=== PATIENT | female | born 1940 | race Caucasian/White ===

== ENCOUNTER 2019-04-02 10:52 | Outpatient (CLI) | payer MEDICARE, MEDICAID ==
[~2019-04-02 10:52] MED LIST: Acetaminophen 325 MG Tab PO ONE
[2019-04-02] MEDS ORDERED: diphenhydrAMINE 25 MG Tab PO ONE (11:00)
[2019-04-02] MEDS ORDERED: Acetaminophen 325 MG Tab PO ONE (11:00)
[2019-04-02] MEDS ORDERED: Sodium Chloride 0.9% 10 ML Syringe FLUSH PRN (13:04)
== END 2019-04-02 14:40 | disposition home or self-care (01) ==
LOC: DL.BLOODTR 10:52
PROVIDERS: ATTEND Internal Medicine Hematology & Oncology
DX: C7A.1 Malignant poorly differentiated neuroendocrine tumors (principal)
CPT/HCPCS: 36415; 36430; 86850; 86900; 86901; 86920; 86922; A9270; J1642; P9040

== ENCOUNTER 2019-10-06 14:13 | Inpatient (IN) | payer MEDICARE, MEDICAID ==
[2019-10-06] MEDS ORDERED: Acetaminophen 325 MG Tab PO PRN (15:23)
[2019-10-06] MEDS ORDERED: Ondansetron 4 MG/2 ML SDV IVPUSH PRN (15:23)
[2019-10-06] MEDS ORDERED: Potassium Chloride 10 MEQ Tab.ER PO ONE (15:30)
--- NOTE | 2019-10-06 15:44 | PCM.HP ---
H&P History of Present Illness - General Date of Service: 10/06/19 Admit Problem/Dx: Admission Diagnosis/Problem Admission Diagnosis/Problem Dehydration - History of Present Illness Initial Comments - Free Text/Narative: Ms. Casas is a 79 year old female with past medical history significant for relapsed poorly differentiated neuroendocrine tumor currently on FOLFOX therapy , most recent cycle finished on Saturday, history of CVA, hypertension, hypercholesterolemia, tobacco abuse who presented to the hospital as a direct admit from clinic due to progressive weakness, and adult failure to thrive. Patient said that she is on her third week of FOLFOX, and she aggressively got worried weaker. Over the past week or so, she developed significant weakness, associated with nausea and vomiting. Patient thinks that she is keeping up with her output, a and she has chronic diarrhea. She did not notice any change in the color or smell of her urine. Her appetite has been poor. She was seen today by Dr. Giraldo, and lab work was remarkable for potassium 2.8, creatinine 1.5, hemoglobin 9.7, white blood cell count 2.66, chloride 95, calcium 6.9, albumin 2.2. Upon evaluation, patient said that she has no energy. She denied any recent illness. She has no sick contacts. - Related Data Allergies/Adverse Reactions: Allergies Allergy/AdvReac Type Severity Reaction Status Date / Time Penicillins Allergy Cannot Verified 10/06/19 14:40 Remember Home Medications: Home Meds Labetalol [Normodyne] 100 mg PO BIDMEALS 01/21/18 [History] Rosuvastatin [Crestor] 10 mg PO BEDTIME 01/21/18 [History] Ondansetron [Zofran] 8 mg PO Q8H PRN 05/30/18 [History] Prochlorperazine [Compazine] 10 mg PO Q6H PRN 05/30/18 [History] Furosemide [Lasix] 20 mg PO DAILY 02/10/19 [History] Aspirin [Ecotrin EC] 81 mg PO BEDTIME 10/06/19 [History] Sodium Chloride 1 gm PO BID 10/06/19 [History] Zolpidem Tartrate 10 mg PO BEDTIME 10/06/19 [History] amLODIPine Besylate [Amlodipine Besylate] 5 mg PO WITHDINNER 10/06/19 [History] Past Medical History HEENT History: Reports: Cataract Cardiovascular History: Reports: High Cholesterol, Hypertension Respiratory History: Reports: Other (See Below) Other Respiratory History: Lung Cancer Gastrointestinal History: Reports: None Genitourinary History: Reports: None RN HEMATOLOGY History: Reports: Musculoskeletal History: Reports: None Neurological History: Reports: CVA Psychiatric History: Reports: None Endocrine/Metabolic History: Reports: None Hematologic History: Reports: Anemia, Blood Transfusion(s), Iron Deficiency Immunologic History: Reports: Immunosuppression Oncologic (Cancer) 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 - Infectious Disease History Infectious Disease History: Reports: Influenza, Shingles - Past Surgical History Head Surgeries/Procedures: Reports: None HEENT Surgical History: Reports: Cataract Surgery Cardiovascular Surgical History: Reports: Carotid Stents Respiratory Surgical History: Reports: Lung Biopsies GI Surgical History: Reports: Appendectomy Female Surgical History: Reports: None Neurological Surgical History: Reports: None Musculoskeletal Surgical History: Reports: None Oncologic Surgical History: Reports: None Dermatological Surgical History: Reports: None Social & Family History - Family History Family Medical History: Noncontributory - Tobacco Use Smoking Status *Q: Current Every Day Smoker Years of Tobacco use: 63 Packs/Tins Daily: 0.7 Used Tobacco, but Quit: No Second Hand Smoke Exposure: No - Caffeine Use Caffeine Use: Reports: Coffee - Recreational Drug Use Recreational Drug Use: No H&P Review of Systems - Review of Systems: Review Of Systems: Comprehensive ROS is negative, except as noted in HPI. Exam - Exam Exam: See Below - Exam General: Alert, Oriented, Other HEENT: Conjunctiva Clear Lungs: Clear to Auscultation, Normal Respiratory Effort Cardiovascular: Regular Rate, Regular Rhythm GI/Abdominal Exam: Normal Bowel Sounds, Soft, Non-Tender Extremities: Normal Inspection, No Pedal Edema Skin: Warm, Dry, Intact Psychiatric: Alert, Normal Affect, Normal Mood Problem List Initiated/Reviewed/Updated: Yes Orders Last 24hrs: Active Orders 24 hr Category Date Time Status Patient Status [ADT] Routine ADT 10/06/19 15:23 Ordered Height and Weight [RC] DAILY Care 10/06/19 15:23 Ordered Intake and Output [RC] QSHIFT Care 10/06/19 15:23 Ordered Oxygen Therapy [RC] PRN Care 10/06/19 15:23 Ordered Up With Assistance [RC] ASDIRECTED Care 10/06/19 15:23 Ordered VTE/DVT Education [RC] PER UNIT ROUTINE Care 10/06/19 15:23 Ordered Vital Signs [RC] Q4H Care 10/06/19 15:23 Ordered PT Evaluation and Treatment [CONS] Routine Cons 10/06/19 15:23 Ordered Regular Diet [DIET] Diet 10/06/19 Dinner Ordered CBC W/O DIFF,HEMOGRAM [HEME] Stat Lab 10/06/19 15:23 Ordered CBC WITH AUTO DIFF [HEME] AM Lab 10/07/19 05:11 Ordered COMPREHENSIVE METABOLIC PN,CMP [CHEM] AM Lab 10/07/19 05:11 Ordered MAGNESIUM [CHEM] AM Lab 10/07/19 05:11 Ordered PHOSPHORUS [CHEM] AM Lab 10/07/19 05:11 Ordered Acetaminophen [Tylenol] Med 10/06/19 15:23 Ordered 650 mg PO Q4H PRN Aspirin [Halfprin] Med 10/06/19 21:00 Ordered 81 mg PO BEDTIME Labetalol [Normodyne] Med 10/06/19 18:00 Ordered 100 mg PO BIDMEALS Ondansetron [Zofran] Med 10/06/19 15:23 Ordered 4 mg IVPUSH Q4H PRN Potassium Chloride [Klor-Con 10] Med 10/06/19 15:30 Once 60 meq PO ONETIME ONE Rosuvastatin [Crestor] Med 10/06/19 21:00 Ordered 10 mg PO BEDTIME Sodium Chloride Med 10/06/19 21:00 Ordered 1 gm PO BID Sodium Chloride 0.9% @ 125 MLS/HR (1000ml) Med 10/06/19 15:30 Ordered Sodium Chloride 0.9% [Normal Saline] 1,000 ml IV ASDIRECTED Zolpidem Tartrate Med 10/06/19 21:00 Ordered 10 mg PO BEDTIME Resuscitation Status Routine Resus Stat 10/06/19 15:23 Ordered Medication Orders Acetaminophen (Tylenol) 650 mg PO Q4H PRN PRN Reason: Pain (Mild 1-3)/fever Aspirin (Halfprin) 81 mg PO BEDTIME [facility] Assessment/Plan Comment:: Dehydration/possible MARCELO Patient had poor oral intake with associated chronic diarrhea Start patient on IV fluids Deconditioning/adult failure to thrive Consult PT Poorly differentiated neuroendocrine tumor Patient used to follow with Dr. Leahy, but currently sees Dr. Rico Treatment per Dr. Rico once patient is discharged Hypokalemia We will replete orally, recheck potassium here Anemia We will monitor likely related to chemotherapy Hypertension will hold lasix, continue rest of meds Tobacco abuse nicotine patch Hyperlipidemia Statin DVT prophylaxis heparin
[2019-10-06] MEDS: Sodium Chloride 0.9% 1,000 ML IV SCH (16:11)
[2019-10-06] MEDS: Nicotine 14 MG/24 Hr Patch TRDERM SCH (16:22)
[2019-10-06 16:49] LABS: ANION GAP 16.5
[2019-10-06] MEDS: Labetalol 100 MG Tab PO SCH (18:00)
[2019-10-06] MEDS: Rosuvastatin 10 MG Tab PO SCH (21:05)
[2019-10-06] MEDS: Aspirin 81 MG Tab.EC PO SCH (21:05)
[2019-10-06] MEDS: Zolpidem 5 MG Tab PO SCH (21:05)
[2019-10-06] MEDS: Pantoprazole 40 MG Tab.CR PO SCH (21:05)
[2019-10-06] MEDS: Heparin Sodium 5,000 Units/ML Vial SUBCUT SCH (21:05)
[2019-10-06] MEDS: Sodium Chloride 1 GM Tab PO SCH (21:05)
[2019-10-07] MEDS: Sodium Chloride 0.9% 1,000 ML IV SCH ×2 (00:20→08:26)
[2019-10-07] MEDS: Heparin Sodium 5,000 Units/ML Vial SUBCUT SCH ×3 (05:59→22:15)
[2019-10-07 07:06] LABS: ANION GAP 15.3
[2019-10-07] MEDS: Labetalol 100 MG Tab PO SCH ×2 (08:33→17:23)
[2019-10-07] MEDS: Sodium Chloride 1 GM Tab PO SCH ×2 (08:34→22:14)
[2019-10-07] MEDS: Nicotine 14 MG/24 Hr Patch TRDERM SCH (08:34)
--- NOTE | 2019-10-07 11:26 | PCM.PN ---
- General Info Date of Service: 10/07/19 Subjective Update: Feeling well. The nausea and vomiting stopped. Had no bowel movement No shortness of breath, no chest pain. Feeling stronger but does not want to get up and walk around yet. Functional Status: Reports: Pain Controlled. Denies: Tolerating Diet (Poor appetite) - Review of Systems General: Reports: Weakness, Fatigue. Denies: Fever Pulmonary: Denies: Shortness of Breath Cardiovascular: Denies: Chest Pain Gastrointestinal: Denies: Abdominal Pain Neurological: Denies: Confusion - Patient Data Vitals - Most Recent: Last Vital Signs Temp 36.4 C 10/07/19 07:33 Pulse 97 10/07/19 08:33 Resp 20 10/07/19 07:33 BP 108/45 L 10/07/19 08:33 Pulse Ox 97 10/07/19 07:33 Weight - Most Recent: 54.601 kg I&O - Last 24 Hours: Intake & Output 10/06/19 10/07/19 10/07/19 22:59 06:59 14:59 Intake Total 120 1155 1011 Output Total 150 300 Balance 120 1005 711 Lab Results Last 24 Hours: Laboratory Results - last 24 hr 10/06/19 10/06/19 10/07/19 Range/Units 16:05 16:05 06:35 WBC 2.5 L 2.4 L (5.0-10.0) 10^3/uL RBC 2.66 L 2.33 L (4.2-5.4) 10^6/uL Hgb 9.1 L 7.9 L (12.0-16.0) g/dL Hct 25.9 L 22.8 L (37.0-47.0) % MCV 97.4 97.9 (80-100) fL MCH 34.2 H 33.9 (27.0-34.0) pg MCHC 35.1 H 34.6 (33.0-35.0) g/dL Plt Count 142 L 131 L (150-450) 10^3/uL Neut % (Auto) 35.3 L (42.2-75.2) % Lymph % (Auto) 51.2 H (20.5-50.1) % [place] % (Auto) 12.3 H (2-8) % Eos % (Auto) 1.2 (1.0-3.0) % Baso % (Auto) 0.0 (0.0-1.0) % Sodium 131 L (135-145) mmol/L Potassium 2.5 L (3.6-5.0) mmol/L Chloride 91 L (101-111) mmol/L Carbon Dioxide 26.0 (21.0-31.0) mmol/L Anion Gap 16.5 BUN 23 H (7-18) mg/dL Creatinine 1.4 H (0.6-1.3) mg/dL Est Cr Clr Drug Dosing 23.40 mL/min Estimated GFR (MDRD) 36 BUN/Creatinine Ratio Glucose 102 (74-105) mg/dL Calcium 6.5 L (8.4-10.2) mg/dl Phosphorus (2.5-4.6) mg/dL Magnesium (1.8-2.5) mg/dL Total Bilirubin (0.2-1.0) mg/dL AST (10-42) IU/L ALT (10-60) IU/L Alkaline Phosphatase (42-121) IU/L Total Protein (6.7-8.2) g/dl Albumin (3.2-5.5) g/dl Globulin Albumin/Globulin Ratio 10/07/19 Range/Units 06:35 WBC (5.0-10.0) 10^3/uL RBC (4.2-5.4) 10^6/uL Hgb (12.0-16.0) g/dL Hct (37.0-47.0) % MCV (80-100) fL MCH (27.0-34.0) pg MCHC (33.0-35.0) g/dL Plt Count (150-450) 10^3/uL Neut % (Auto) (42.2-75.2) % Lymph % (Auto) (20.5-50.1) % [place] % (Auto) (2-8) % Eos % (Auto) (1.0-3.0) % Baso % (Auto) (0.0-1.0) % Sodium 134 L (135-145) mmol/L Potassium 3.3 L (3.6-5.0) mmol/L Chloride 101 (101-111) mmol/L Carbon Dioxide 21.0 (21.0-31.0) mmol/L Anion Gap 15.3 BUN 20 H (7-18) mg/dL Creatinine 1.1 (0.6-1.3) mg/dL Est Cr Clr Drug Dosing 29.79 mL/min Estimated GFR (MDRD) 48 BUN/Creatinine Ratio 18.18 Glucose 91 (74-105) mg/dL Calcium 5.9 L (8.4-10.2) mg/dl Phosphorus 2.0 L (2.5-4.6) mg/dL Magnesium 0.9 L (1.8-2.5) mg/dL Total Bilirubin 1.2 H (0.2-1.0) mg/dL AST 16 (10-42) IU/L ALT 11 (10-60) IU/L Alkaline Phosphatase 28 L (42-121) IU/L Total Protein 3.6 L (6.7-8.2) g/dl Albumin 1.9 L (3.2-5.5) g/dl Globulin 1.7 Albumin/Globulin Ratio 1.12 Med Orders - Current: Current Medications Acetaminophen (Tylenol) 650 mg PO Q4H PRN PRN Reason: Pain (Mild 1-3)/fever Aspirin (Halfprin) 81 mg PO BEDTIME [facility] Last Admin: 10/06/19 21:05 Dose: 81 mg Calcium Carbonate (Calcium Carbonate/Vitamin D 1250 Mg-200 Unit) 1 tab PO BIDMEALS [facility] Heparin Sodium (Porcine) (Heparin Sodium) 5,000 units SUBCUT Q8HR [facility] Last Admin: 10/07/19 05:59 Dose: 5,000 units Labetalol HCl (Normodyne) 100 mg PO BIDMEALS [facility] Last Admin: 10/07/19 08:33 Dose: 100 mg Magnesium Oxide (Magnesium Oxide) 500 mg PO BIDM [facility] Nicotine (Habitrol) 14 mg TRDERM DAILY [facility] Last Admin: 10/07/19 08:34 Dose: 14 mg Ondansetron HCl (Zofran) 4 mg IVPUSH Q4H PRN PRN Reason: Nausea/Vomiting Last Admin: 10/06/19 21:17 Dose: 4 mg Pantoprazole Sodium (Protonix) 40 mg PO BEDTIME [facility] Last Admin: 10/06/19 21:05 Dose: 40 mg Rosuvastatin Calcium (Crestor) 10 mg PO BEDTIME [facility] Last Admin: 10/06/19 21:05 Dose: 10 mg Sodium Chloride (Sodium Chloride) 1 gm PO BID [facility] Last Admin: 10/07/19 08:34 Dose: 1 gm Sodium Phosphate (Neutra-Phos) 250 mg PO QID [facility] Stop: 10/08/19 09:01 Zolpidem Tartrate (Ambien) 10 mg PO BEDTIME [facility] Last Admin: 10/06/19 21:05 Dose: 10 mg Discontinued Medications Sodium Chloride (Normal Saline) 1,000 mls @ 125 mls/hr IV ASDIRECTED [facility] Last Admin: 10/07/19 08:26 Dose: 125 mls/hr Potassium Chloride (Klor-Con 10) 60 meq PO ONETIME ONE Stop: 10/06/19 15:31 Last Admin: 10/06/19 16:22 Dose: 60 meq - Exam Quality Assessment: No: Supplemental Oxygen General: Alert, Oriented Neck: Supple Lungs: Clear to Auscultation, Normal Respiratory Effort Cardiovascular: Regular Rate, Regular Rhythm GI/Abdominal Exam: Normal Bowel Sounds, Soft, Non-Tender Extremities: No Pedal Edema Neurological: No New Focal Deficit Psy/Mental Status: Alert, Normal Affect - Problem List & Annotations (1) Dehydration SNOMED Code(s): 86034680 Code(s): E86.0 - DEHYDRATION Status: Acute Current Visit: Yes (2) Hypokalemia SNOMED Code(s): 62176131 Code(s): E87.6 - HYPOKALEMIA Status: Acute Current Visit: Yes - Problem List Review Problem List Initiated/Reviewed/Updated: Yes - My Orders Last 24 Hours: My Active Orders 10/06/19 21:00 Pantoprazole [ProTONIX] 40 mg PO BEDTIME 10/07/19 13:00 Phosphorus #1 [Neutra-Phos] 250 mg PO QID 10/07/19 18:00 Calcium Carbonate/Vitamin D3 [Calcium Carbonate/Vitamin D 1250 MG-200 Unit] 1 tab PO BIDMEALS Magnesium Oxide 500 mg PO BIDM 10/08/19 05:11 MAGNESIUM [CHEM] AM PHOSPHORUS [CHEM] AM 10/08/19 05:15 BASIC METABOLIC PANEL,BMP [CHEM] AM CBC WITH AUTO DIFF [HEME] AM - Plan Plan:: Ms. Casas is a 79 year old female with past medical history significant for relapsed poorly differentiated neuroendocrine tumor currently on FOLFOX therapy , most recent cycle finished on Saturday, history of CVA, hypertension, hypercholesterolemia, tobacco abuse who presented to the hospital as a direct admit from clinic due to progressive weakness, and adult failure to thrive. Patient said that she is on her third week of FOLFOX, and she aggressively got worried weaker. Over the past week or so, she developed significant weakness, associated with nausea and vomiting. Patient thinks that she is keeping up with her output, a and she has chronic diarrhea. She did not notice any change in the color or smell of her urine. Her appetite has been poor. She was seen today by Dr. Giraldo, and lab work was remarkable for potassium 2.8, creatinine 1.5, hemoglobin 9.7, white blood cell count 2.66, chloride 95, calcium 6.9, albumin 2.2. Upon evaluation, patient said that she has no energy. She denied any recent illness. She has no sick contacts. Dehydration with MARCELO Patient had poor oral intake with associated chronic diarrhea Start patient on IV fluids improved will stop IVF now Deconditioning/adult failure to thrive Consulted PT Poorly differentiated neuroendocrine tumor Patient used to follow with Dr. Leahy, but currently sees Dr. Rico Treatment per Dr. Rico once patient is discharged Hypokalemia, hypocalcemia, hypophosphatemia We will continue to replace, recheck in am Anemia drop is likely due to hydration We will monitor likely related to chemotherapy Hypertension cont labetalol will hold lasix Tobacco abuse nicotine patch Hyperlipidemia Statin DVT prophylaxis heparin d/w dr. Busch
[2019-10-07] MEDS: Phosphorus #1 250 MG Tab PO SCH ×3 (13:29→22:15)
[2019-10-07] MEDS: Calcium Carbonate/Vitamin D3 1250 MG-200 Unit Tab PO SCH (17:22)
[2019-10-07] MEDS: Ondansetron 4 MG Tab.DIS PO PRN (22:13)
[2019-10-07] MEDS: Rosuvastatin 10 MG Tab PO SCH (22:14)
[2019-10-07] MEDS: Zolpidem 5 MG Tab PO SCH (22:14)
[2019-10-07] MEDS: Pantoprazole 40 MG Tab.CR PO SCH (22:14)
[2019-10-07] MEDS: Aspirin 81 MG Tab.EC PO SCH (22:15)
[2019-10-08] MEDS: Heparin Sodium 5,000 Units/ML Vial SUBCUT SCH ×3 (06:18→22:06)
[2019-10-08 06:52] LABS: ANION GAP 12.9
[2019-10-08] MEDS: Sodium Chloride 1 GM Tab PO SCH ×2 (09:10→22:08)
[2019-10-08] MEDS: Calcium Carbonate/Vitamin D3 1250 MG-200 Unit Tab PO SCH ×2 (09:10→17:20)
[2019-10-08] MEDS: Phosphorus #1 250 MG Tab PO SCH (09:10)
[2019-10-08] MEDS: Labetalol 100 MG Tab PO SCH ×2 (09:11→17:21)
[2019-10-08] MEDS: Nicotine 14 MG/24 Hr Patch TRDERM SCH (09:11)
[2019-10-08] MEDS: Ondansetron 4 MG Tab.DIS PO PRN ×3 (09:17→23:54)
--- NOTE | 2019-10-08 09:43 | PCM.PN ---
- General Info Date of Service: 10/08/19 Admission Dx/Problem (Free Text): Admission Diagnosis/Problem Admission Diagnosis/Problem Dehydration Subjective Update: Feeling better, still feeling cold, tired. The vomiting stopped. continues to be nauseous nut no vomiting zofran helped nausea No shortness of breath, no chest pain. Functional Status: Reports: Pain Controlled, Tolerating Diet. Denies: Ambulating - Review of Systems General: Reports: Weakness Pulmonary: Denies: Shortness of Breath Cardiovascular: Denies: Chest Pain Gastrointestinal: Reports: Nausea. Denies: Abdominal Pain, Vomiting Neurological: Denies: Confusion - Patient Data Vitals - Most Recent: Last Vital Signs Temp 36.9 C 10/08/19 08:00 Pulse 104 H 10/08/19 09:11 Resp 18 10/08/19 08:00 BP 121/56 L 10/08/19 09:11 Pulse Ox 94 L 10/08/19 08:00 Weight - Most Recent: 55.452 kg I&O - Last 24 Hours: Intake & Output 10/07/19 10/08/19 10/08/19 22:59 06:59 14:59 Intake Total 120 Balance 120 Lab Results Last 24 Hours: Laboratory Results - last 24 hr 10/08/19 10/08/19 Range/Units 06:10 06:10 WBC 1.8 L (5.0-10.0) 10^3/uL RBC 2.37 L (4.2-5.4) 10^6/uL Hgb 8.1 L (12.0-16.0) g/dL Hct 23.2 L (37.0-47.0) % MCV 97.9 (80-100) fL MCH 34.2 H (27.0-34.0) pg MCHC 34.9 (33.0-35.0) g/dL Plt Count 132 L (150-450) 10^3/uL Neut % (Auto) 41.4 L (42.2-75.2) % Lymph % (Auto) 39.8 (20.5-50.1) % [place] % (Auto) 18.2 H (2-8) % Eos % (Auto) 0.0 L (1.0-3.0) % Baso % (Auto) 0.6 (0.0-1.0) % Sodium 133 L (135-145) mmol/L Potassium 2.9 L (3.6-5.0) mmol/L Chloride 99 L (101-111) mmol/L Carbon Dioxide 24.0 (21.0-31.0) mmol/L Anion Gap 12.9 BUN 16 (7-18) mg/dL Creatinine 1.0 (0.6-1.3) mg/dL Est Cr Clr Drug Dosing 32.77 mL/min Estimated GFR (MDRD) 53 Glucose 128 H (74-105) mg/dL Calcium 6.3 L (8.4-10.2) mg/dl Phosphorus 2.3 L (2.5-4.6) mg/dL Magnesium 1.1 L (1.8-2.5) mg/dL Med Orders - Current: Current Medications Acetaminophen (Tylenol) 650 mg PO Q4H PRN PRN Reason: Pain (Mild 1-3)/fever Aspirin (Halfprin) 81 mg PO BEDTIME [facility] Last Admin: 10/07/19 22:15 Dose: 81 mg Calcium Carbonate (Calcium Carbonate/Vitamin D 1250 Mg-200 Unit) 1 tab PO BIDMEALS [facility] Last Admin: 10/08/19 09:10 Dose: 1 tab Heparin Sodium (Porcine) (Heparin Sodium) 5,000 units SUBCUT Q8HR [facility] Last Admin: 10/08/19 06:18 Dose: 5,000 units Labetalol HCl (Normodyne) 100 mg PO BIDMEALS [facility] Last Admin: 10/08/19 09:11 Dose: 100 mg Magnesium Oxide (Magnesium Oxide) 500 mg PO TID [facility] Nicotine (Habitrol) 14 mg TRDERM DAILY [facility] Last Admin: 10/08/19 09:11 Dose: 14 mg Ondansetron HCl (Zofran Odt) 4 mg PO Q6H PRN PRN Reason: Nausea Last Admin: 10/08/19 09:17 Dose: 4 mg Pantoprazole Sodium (Protonix) 40 mg PO BEDTIME [facility] Last Admin: 10/07/19 22:14 Dose: 40 mg Potassium Chloride (Klor-Con 10) 40 meq PO BIDMEALS [facility] Rosuvastatin Calcium (Crestor) 10 mg PO BEDTIME [facility] Last Admin: 10/07/19 22:14 Dose: 10 mg Sodium Chloride (Sodium Chloride) 1 gm PO BID [facility] Last Admin: 10/08/19 09:10 Dose: 1 gm Sodium Phosphate (Neutra-Phos) 500 mg PO ONETIME ONE Stop: 10/08/19 13:01 Zolpidem Tartrate (Ambien) 10 mg PO BEDTIME [facility] Last Admin: 10/07/19 22:14 Dose: 10 mg Discontinued Medications Sodium Chloride (Normal Saline) 1,000 mls @ 125 mls/hr IV ASDIRECTED [facility] Last Infusion: 10/07/19 13:34 Dose: 0 mls/hr Magnesium Oxide (Magnesium Oxide) 500 mg PO BIDM [facility] Last Admin: 10/08/19 09:10 Dose: 500 mg Ondansetron HCl (Zofran) 4 mg IVPUSH Q4H PRN PRN Reason: Nausea/Vomiting Last Admin: 10/06/19 21:17 Dose: 4 mg Potassium Chloride (Klor-Con 10) 60 meq PO ONETIME ONE Stop: 10/06/19 15:31 Last Admin: 10/06/19 16:22 Dose: 60 meq Sodium Phosphate (Neutra-Phos) 250 mg PO QID [facility] Stop: 10/08/19 09:01 Last Admin: 10/08/19 09:10 Dose: 250 mg - Exam General: Alert, Oriented Neck: Supple Lungs: Clear to Auscultation, Normal Respiratory Effort Cardiovascular: Regular Rate, Regular Rhythm GI/Abdominal Exam: Normal Bowel Sounds, Soft, Non-Tender Extremities: No Pedal Edema - Problem List & Annotations (1) Dehydration SNOMED Code(s): 87997622 Code(s): E86.0 - DEHYDRATION Status: Acute Current Visit: Yes (2) Hypokalemia SNOMED Code(s): 37116228 Code(s): E87.6 - HYPOKALEMIA Status: Acute Current Visit: Yes - Problem List Review Problem List Initiated/Reviewed/Updated: Yes - My Orders Last 24 Hours: My Active Orders 10/07/19 18:00 Calcium Carbonate/Vitamin D3 [Calcium Carbonate/Vitamin D 1250 MG-200 Unit] 1 tab PO BIDMEALS 10/07/19 21:57 Ondansetron [Zofran ODT] 4 mg PO Q6H PRN 10/08/19 10:00 Potassium Chloride [Klor-Con 10] 40 meq PO BIDMEALS 10/08/19 13:00 Phosphorus #1 [Neutra-Phos] 500 mg PO ONETIME ONE 10/08/19 14:00 Magnesium Oxide 500 mg PO TID - Plan Plan:: Ms. Casas is a 79 year old female with past medical history significant for relapsed poorly differentiated neuroendocrine tumor currently on FOLFOX therapy , most recent cycle finished on Saturday, history of CVA, hypertension, hypercholesterolemia, tobacco abuse who presented to the hospital as a direct admit from clinic due to progressive weakness, and adult failure to thrive. Patient said that she is on her third week of FOLFOX, and she aggressively got worried weaker. Over the past week or so, she developed significant weakness, associated with nausea and vomiting. Patient thinks that she is keeping up with her output, a and she has chronic diarrhea. She did not notice any change in the color or smell of her urine. Her appetite has been poor. She was seen today by Dr. Giraldo, and lab work was remarkable for potassium 2.8, creatinine 1.5, hemoglobin 9.7, white blood cell count 2.66, chloride 95, calcium 6.9, albumin 2.2. Upon evaluation, patient said that she has no energy. She denied any recent illness. She has no sick contacts. Dehydration with MARCELO Patient had poor oral intake with associated chronic diarrhea treated with IV fluids Deconditioning/adult failure to thrive Consulted PT Poorly differentiated neuroendocrine tumor Patient used to follow with Dr. Leahy, but currently sees Dr. Rico Treatment per Dr. Rico once patient is discharged Hypokalemia, hypocalcemia, hypophosphatemia We will continue to replace, recheck in am Anemia drop is likely due to hydration now stable We will monitor likely related to chemotherapy Hypertension cont labetalol will hold lasix Tobacco abuse nicotine patch Hyperlipidemia Statin DVT prophylaxis heparin
[2019-10-08] MEDS ORDERED: Potassium Chloride 10 MEQ Tab.ER PO SCH (10:00)
[2019-10-08] MEDS ORDERED: Phosphorus #1 250 MG Tab PO ONE (13:00)
[2019-10-08] MEDS: Potassium Chloride 10 MEQ Tab.ER PO SCH ×2 (13:19→17:20)
[2019-10-08] MEDS: Zolpidem 5 MG Tab PO SCH (21:59)
[2019-10-08] MEDS: Aspirin 81 MG Tab.EC PO SCH (22:03)
[2019-10-08] MEDS: Rosuvastatin 10 MG Tab PO SCH (22:04)
[2019-10-08] MEDS: Pantoprazole 40 MG Tab.CR PO SCH (22:04)
[2019-10-09] MEDS: Heparin Sodium 5,000 Units/ML Vial SUBCUT SCH ×3 (06:15→21:39)
[2019-10-09] MEDS: Ondansetron 4 MG Tab.DIS PO PRN ×3 (06:19→17:25)
[2019-10-09 06:55] LABS: ANION GAP 15.1
[2019-10-09] MEDS: Potassium Chloride 10 MEQ Tab.ER PO SCH ×2 (08:37→18:11)
[2019-10-09] MEDS: Labetalol 100 MG Tab PO SCH ×2 (08:38→18:12)
[2019-10-09] MEDS: Sodium Chloride 1 GM Tab PO SCH ×2 (08:38→21:41)
[2019-10-09] MEDS: Calcium Carbonate/Vitamin D3 1250 MG-200 Unit Tab PO SCH ×2 (08:38→18:10)
[2019-10-09] MEDS: Nicotine 14 MG/24 Hr Patch TRDERM SCH (08:39)
[2019-10-09] MEDS ORDERED: Loperamide 2 MG Cap PO PRN (10:30)
--- NOTE | 2019-10-09 10:34 | PCM.PN ---
- General Info Date of Service: 10/09/19 Admission Dx/Problem (Free Text): Admission Diagnosis/Problem Admission Diagnosis/Problem Dehydration Subjective Update: Feeling weak. The vomiting stopped. continues to be nauseous but no vomiting had 3 loose watery BMs zofran helped nausea No shortness of breath, no chest pain. very poor appetite - Review of Systems General: Reports: Weakness, Fatigue, Malaise. Denies: Fever Pulmonary: Denies: Shortness of Breath Cardiovascular: Denies: Chest Pain, Edema Gastrointestinal: Reports: Diarrhea, Nausea. Denies: Abdominal Pain Neurological: Denies: Confusion - Patient Data Vitals - Most Recent: Last Vital Signs Temp 36.8 C 10/09/19 07:44 Pulse 87 10/09/19 08:38 Resp 18 10/09/19 07:44 BP 120/43 L 10/09/19 08:38 Pulse Ox 95 10/09/19 07:44 Weight - Most Recent: 56.245 kg I&O - Last 24 Hours: Intake & Output 10/08/19 10/09/19 10/09/19 22:59 06:59 14:59 Intake Total 400 100 Balance 400 100 Lab Results Last 24 Hours: Laboratory Results - last 24 hr 10/09/19 10/09/19 Range/Units 06:25 06:25 WBC 1.5 L (5.0-10.0) 10^3/uL RBC 2.43 L (4.2-5.4) 10^6/uL Hgb 8.3 L (12.0-16.0) g/dL Hct 23.7 L (37.0-47.0) % MCV 97.5 (80-100) fL MCH 34.2 H (27.0-34.0) pg MCHC 35.0 (33.0-35.0) g/dL Plt Count 127 L (150-450) 10^3/uL Neut % (Auto) 33.5 L (42.2-75.2) % Lymph % (Auto) 45.9 (20.5-50.1) % [place] % (Auto) 19.9 H (2-8) % Eos % (Auto) 0.0 L (1.0-3.0) % Baso % (Auto) 0.7 (0.0-1.0) % Add Manual Diff Yes Neutrophils % (Manual) 20 L (42-75) % Band Neutrophils % 8 % Lymphocytes % (Manual) 52 H (20-50) % Monocytes % (Manual) 18 H (2-8) % Eosinophils % (Manual) 2 (1-3) % Sodium 131 L (135-145) mmol/L Potassium 3.1 L (3.6-5.0) mmol/L Chloride 96 L (101-111) mmol/L Carbon Dioxide 23.0 (21.0-31.0) mmol/L Anion Gap 15.1 BUN 14 (7-18) mg/dL Creatinine 1.1 (0.6-1.3) mg/dL Est Cr Clr Drug Dosing 29.79 mL/min Estimated GFR (MDRD) 48 Glucose 144 H (74-105) mg/dL Calcium 6.7 L (8.4-10.2) mg/dl Med Orders - Current: Current Medications Acetaminophen (Tylenol) 650 mg PO Q4H PRN PRN Reason: Pain (Mild 1-3)/fever Aspirin (Halfprin) 81 mg PO BEDTIME [facility] Last Admin: 10/08/19 22:03 Dose: 81 mg Calcium Carbonate (Calcium Carbonate/Vitamin D 1250 Mg-200 Unit) 1 tab PO BIDMEALS [facility] Last Admin: 10/09/19 08:38 Dose: 1 tab Heparin Sodium (Porcine) (Heparin Sodium) 5,000 units SUBCUT Q8HR [facility] Last Admin: 10/09/19 06:15 Dose: 5,000 units Potassium Chloride 10 meq/ (Premix) 100 mls @ 100 mls/hr IV Q2H [facility] Stop: 10/09/19 17:29 Labetalol HCl (Normodyne) 100 mg PO BIDMEALS [facility] Last Admin: 10/09/19 08:38 Dose: 100 mg Magnesium Oxide (Magnesium Oxide) 500 mg PO TID [facility] Last Admin: 10/09/19 08:38 Dose: 500 mg Megestrol Acetate (Megace 40 Mg/Ml Susp) 400 mg PO DAILY [facility] Nicotine (Habitrol) 14 mg TRDERM DAILY [facility] Last Admin: 10/09/19 08:39 Dose: 14 mg Ondansetron HCl (Zofran Odt) 4 mg PO Q6H PRN PRN Reason: Nausea Last Admin: 10/09/19 06:19 Dose: 4 mg Pantoprazole Sodium (Protonix) 40 mg PO BEDTIME [facility] Last Admin: 10/08/19 22:04 Dose: 40 mg Potassium Chloride (Klor-Con 10) 40 meq PO BIDMEALS [facility] Last Admin: 10/09/19 08:37 Dose: 40 meq Rosuvastatin Calcium (Crestor) 10 mg PO BEDTIME [facility] Last Admin: 10/08/19 22:04 Dose: 10 mg Sodium Chloride (Sodium Chloride) 1 gm PO BID [facility] Last Admin: 10/09/19 08:38 Dose: 1 gm Zolpidem Tartrate (Ambien) 10 mg PO BEDTIME [facility] Last Admin: 10/08/19 21:59 Dose: 10 mg Discontinued Medications Sodium Chloride (Normal Saline) 1,000 mls @ 125 mls/hr IV ASDIRECTED [facility] Last Infusion: 10/07/19 13:34 Dose: 0 mls/hr Magnesium Oxide (Magnesium Oxide) 500 mg PO BIDM [facility] Last Admin: 10/08/19 09:10 Dose: 500 mg Ondansetron HCl (Zofran) 4 mg IVPUSH Q4H PRN PRN Reason: Nausea/Vomiting Last Admin: 10/06/19 21:17 Dose: 4 mg Potassium Chloride (Klor-Con 10) 60 meq PO ONETIME ONE Stop: 10/06/19 15:31 Last Admin: 10/06/19 16:22 Dose: 60 meq Potassium Chloride (Klor-Con 10) 40 meq PO BIDMEALS [facility] Last Admin: 10/08/19 13:12 Dose: Not Given Sodium Phosphate (Neutra-Phos) 250 mg PO QID [facility] Stop: 10/08/19 09:01 Last Admin: 10/08/19 09:10 Dose: 250 mg Sodium Phosphate (Neutra-Phos) 500 mg PO ONETIME ONE Stop: 10/08/19 13:01 Last Admin: 10/08/19 13:19 Dose: 500 mg - Exam General: Alert, Oriented Neck: Supple Lungs: Clear to Auscultation, Normal Respiratory Effort Cardiovascular: Regular Rate, Regular Rhythm GI/Abdominal Exam: Normal Bowel Sounds, Soft, Non-Tender, No Distention Extremities: No Pedal Edema Skin: Warm Neurological: No New Focal Deficit Psy/Mental Status: Alert, Normal Affect, Normal Mood - Problem List & Annotations (1) Dehydration SNOMED Code(s): 05150380 Code(s): E86.0 - DEHYDRATION Status: Acute Current Visit: Yes (2) Hypokalemia SNOMED Code(s): 49656891 Code(s): E87.6 - HYPOKALEMIA Status: Acute Current Visit: Yes - Problem List Review Problem List Initiated/Reviewed/Updated: Yes - My Orders Last 24 Hours: My Active Orders 10/08/19 13:00 Potassium Chloride [Klor-Con 10] 40 meq PO BIDMEALS 10/08/19 14:00 Magnesium Oxide 500 mg PO TID 10/08/19 21:46 Dietary Supplements [RC] 08,13,18 10/09/19 10:26 Flutter Valve Therapy [RT Chest Physiotherapy] [RC] ASDIRECTED 10/09/19 10:29 PT Evaluation and Treatment [CONS] Routine 10/09/19 10:30 OT Evaluation and Treatment [CONS] Routine C DIFFICILE TOXIN IMMUNOASSAY [MREF] Routine Loperamide [Imodium] 2 mg PO Q4H PRN Megestrol [Megace 40 MG/ML Susp] 400 mg PO DAILY Potassium Chloride [KCl 10 MEQ in Water 100 ML] 10 meq Premix Bag 1 bag IV Q2H 10/09/19 22:00 BASIC METABOLIC PANEL,BMP [CHEM] 22 10/10/19 05:11 MAGNESIUM [CHEM] AM PHOSPHORUS [CHEM] AM 10/10/19 05:15 BASIC METABOLIC PANEL,BMP [CHEM] AM CBC WITH AUTO DIFF [HEME] AM - Plan Plan:: Ms. Casas is a 79 year old female with past medical history significant for relapsed poorly differentiated neuroendocrine tumor currently on FOLFOX therapy , most recent cycle finished on Saturday, history of CVA, hypertension, hypercholesterolemia, tobacco abuse who presented to the hospital as a direct admit from clinic due to progressive weakness, and adult failure to thrive. Patient said that she is on her third week of FOLFOX, and she aggressively got worried weaker. Over the past week or so, she developed significant weakness, associated with nausea and vomiting. Patient thinks that she is keeping up with her output, a and she has chronic diarrhea. She did not notice any change in the color or smell of her urine. Her appetite has been poor. She was seen today by Dr. Giraldo, and lab work was remarkable for potassium 2.8, creatinine 1.5, hemoglobin 9.7, white blood cell count 2.66, chloride 95, calcium 6.9, albumin 2.2. Upon evaluation, patient said that she has no energy. She denied any recent illness. She has no sick contacts. Dehydration with MARCELO Patient had poor oral intake with associated chronic diarrhea cont with IV fluids check c diff add imodium Deconditioning/adult failure to thrive Consult PT/ot Poorly differentiated neuroendocrine tumor Patient used to follow with Dr. Leahy, but currently sees Dr. Rico Treatment per Dr. Rico once patient is discharged add megace for appetite Hypokalemia, hypocalcemia, hypophosphatemia We will continue to replace, switch to IV K supplement recheck tonight and in am Anemia drop is likely due to hydration now stable We will monitor likely related to chemotherapy Hypertension cont labetalol will hold lasix Tobacco abuse nicotine patch Hyperlipidemia Statin DVT prophylaxis heparin
[2019-10-09] MEDS: Megestrol Susp 40 MG/ML 10 ML UD Cup PO SCH (11:15)
[2019-10-09] MEDS: Potassium Chloride 10 MEQ in Premix Bag 1 BAG IV SCH ×5 (12:44→18:18)
[2019-10-09] MEDS: Rosuvastatin 10 MG Tab PO SCH (21:43)
[2019-10-09] MEDS: Pantoprazole 40 MG Tab.CR PO SCH (21:43)
[2019-10-09] MEDS: Aspirin 81 MG Tab.EC PO SCH (21:43)
[2019-10-09] MEDS: Zolpidem 5 MG Tab PO SCH (21:43)
[2019-10-09 22:56] LABS: ANION GAP 13.6
[2019-10-10] MEDS: Heparin Sodium 5,000 Units/ML Vial SUBCUT SCH ×3 (05:55→21:27)
[2019-10-10 07:13] LABS: ANION GAP 13.6
[2019-10-10] MEDS: Calcium Carbonate/Vitamin D3 1250 MG-200 Unit Tab PO SCH ×2 (08:00→17:49)
[2019-10-10] MEDS: Potassium Chloride 10 MEQ Tab.ER PO SCH (08:00)
[2019-10-10] MEDS: Labetalol 100 MG Tab PO SCH ×2 (08:01→17:49)
[2019-10-10] MEDS: Ondansetron 4 MG Tab.DIS PO PRN (08:09)
[2019-10-10] MEDS: Nicotine 14 MG/24 Hr Patch TRDERM SCH (09:25)
[2019-10-10] MEDS: Sodium Chloride 1 GM Tab PO SCH ×2 (09:27→21:29)
[2019-10-10] MEDS: Megestrol Susp 40 MG/ML 10 ML UD Cup PO SCH (09:28)
[2019-10-10] MEDS: Phosphorus #1 250 MG Tab PO SCH ×2 (10:45→21:30)
--- NOTE | 2019-10-10 12:07 | PCM.PN ---
- General Info Date of Service: 10/10/19 Admission Dx/Problem (Free Text): Admission Diagnosis/Problem Admission Diagnosis/Problem Dehydration Subjective Update: Feeling weak. The vomiting stopped but continues to be nauseous not able to eat only drinking clear water had 6 loose watery BMs overnight No shortness of breath, no chest pain. Functional Status: Reports: Ambulating (minimally). Denies: Tolerating Diet - Review of Systems General: Reports: Weakness, Fatigue, Malaise. Denies: Fever Pulmonary: Denies: Shortness of Breath Cardiovascular: Denies: Chest Pain Gastrointestinal: Reports: Diarrhea, Nausea. Denies: Abdominal Pain, Vomiting Genitourinary: Denies: Dysuria Neurological: Denies: Confusion - Patient Data Vitals - Most Recent: Last Vital Signs Temp 36.4 C 10/10/19 08:02 Pulse 104 H 10/10/19 08:02 Resp 20 10/10/19 08:02 BP 121/61 10/10/19 08:02 Pulse Ox 96 10/10/19 08:02 Weight - Most Recent: 56.88 kg I&O - Last 24 Hours: Intake & Output 10/09/19 10/10/19 10/10/19 22:59 06:59 14:59 Intake Total 600 600 Output Total 300 100 400 Balance 300 500 -400 Lab Results Last 24 Hours: Laboratory Results - last 24 hr 10/09/19 10/10/19 10/10/19 Range/Units 22:26 05:59 05:59 WBC 1.6 L (5.0-10.0) 10^3/uL RBC 2.35 L (4.2-5.4) 10^6/uL Hgb 7.9 L (12.0-16.0) g/dL Hct 22.9 L (37.0-47.0) % MCV 97.4 (80-100) fL MCH 33.6 (27.0-34.0) pg MCHC 34.5 (33.0-35.0) g/dL Plt Count 118 L (150-450) 10^3/uL Neut % (Auto) 45.0 (42.2-75.2) % Lymph % (Auto) 39.7 (20.5-50.1) % [place] % (Auto) 14.1 H (2-8) % Eos % (Auto) 0.6 L (1.0-3.0) % Baso % (Auto) 0.6 (0.0-1.0) % Sodium 130 L 132 L (135-145) mmol/L Potassium 4.6 D 4.6 (3.6-5.0) mmol/L Chloride 100 L 100 L (101-111) mmol/L Carbon Dioxide 21.0 23.0 (21.0-31.0) mmol/L Anion Gap 13.6 13.6 BUN 16 17 (7-18) mg/dL Creatinine 1.4 H 1.3 (0.6-1.3) mg/dL Est Cr Clr Drug Dosing 23.40 25.20 mL/min Estimated GFR (MDRD) 36 40 Glucose 161 H 130 H (74-105) mg/dL Calcium 7.7 L 7.6 L (8.4-10.2) mg/dl Phosphorus 1.9 L (2.5-4.6) mg/dL Magnesium 1.7 L (1.8-2.5) mg/dL Med Orders - Current: Current Medications Acetaminophen (Tylenol) 650 mg PO Q4H PRN PRN Reason: Pain (Mild 1-3)/fever Aspirin (Halfprin) 81 mg PO BEDTIME [facility] Last Admin: 10/09/19 21:43 Dose: 81 mg Calcium Carbonate (Calcium Carbonate/Vitamin D 1250 Mg-200 Unit) 1 tab PO BIDMEALS [facility] Last Admin: 10/10/19 08:00 Dose: 1 tab Heparin Sodium (Porcine) (Heparin Sodium) 5,000 units SUBCUT Q8HR [facility] Last Admin: 10/10/19 05:55 Dose: 5,000 units Labetalol HCl (Normodyne) 100 mg PO BIDMEALS [facility] Last Admin: 10/10/19 08:01 Dose: 100 mg Loperamide HCl (Imodium) 2 mg PO TID [facility] Magnesium Oxide (Magnesium Oxide) 500 mg PO TID [facility] Last Admin: 10/10/19 09:27 Dose: 500 mg Megestrol Acetate (Megace 40 Mg/Ml Susp) 400 mg PO DAILY [facility] Last Admin: 10/10/19 09:28 Dose: 400 mg Nicotine (Habitrol) 14 mg TRDERM DAILY [facility] Last Admin: 10/10/19 09:25 Dose: 14 mg Ondansetron HCl (Zofran Odt) 4 mg PO TID [facility] Pantoprazole Sodium (Protonix) 40 mg PO BEDTIME [facility] Last Admin: 10/09/19 21:43 Dose: 40 mg Rosuvastatin Calcium (Crestor) 10 mg PO BEDTIME [facility] Last Admin: 10/09/19 21:43 Dose: 10 mg Sodium Chloride (Sodium Chloride) 1 gm PO BID [facility] Last Admin: 10/10/19 09:27 Dose: 1 gm Sodium Phosphate (Neutra-Phos) 500 mg PO BID [facility] Last Admin: 10/10/19 10:45 Dose: 500 mg Zolpidem Tartrate (Ambien) 10 mg PO BEDTIME [facility] Last Admin: 10/09/19 21:43 Dose: 10 mg Discontinued Medications Sodium Chloride (Normal Saline) 1,000 mls @ 125 mls/hr IV ASDIRECTED [facility] Last Infusion: 10/07/19 13:34 Dose: 0 mls/hr Potassium Chloride 10 meq/ (Premix) 100 mls @ 100 mls/hr IV Q2H [facility] Stop: 10/09/19 17:59 Last Admin: 10/09/19 14:28 Dose: Not Given Potassium Chloride 10 meq/ (Premix) 100 mls @ 100 mls/hr IV Q2H [facility] Stop: 10/09/19 18:59 Last Infusion: 10/09/19 19:20 Dose: Infused Loperamide HCl (Imodium) 2 mg PO Q4H PRN PRN Reason: Diarrhea Magnesium Oxide (Magnesium Oxide) 500 mg PO BIDM [facility] Last Admin: 10/08/19 09:10 Dose: 500 mg Ondansetron HCl (Zofran) 4 mg IVPUSH Q4H PRN PRN Reason: Nausea/Vomiting Last Admin: 10/06/19 21:17 Dose: 4 mg Ondansetron HCl (Zofran Odt) 4 mg PO Q6H PRN PRN Reason: Nausea Last Admin: 10/10/19 08:09 Dose: 4 mg Potassium Chloride (Klor-Con 10) 60 meq PO ONETIME ONE Stop: 10/06/19 15:31 Last Admin: 10/06/19 16:22 Dose: 60 meq Potassium Chloride (Klor-Con 10) 40 meq PO BIDMEALS [facility] Last Admin: 10/08/19 13:12 Dose: Not Given Potassium Chloride (Klor-Con 10) 40 meq PO BIDMEALS [facility] Last Admin: 10/10/19 08:00 Dose: 40 meq Sodium Phosphate (Neutra-Phos) 250 mg PO QID [facility] Stop: 10/08/19 09:01 Last Admin: 10/08/19 09:10 Dose: 250 mg Sodium Phosphate (Neutra-Phos) 500 mg PO ONETIME ONE Stop: 10/08/19 13:01 Last Admin: 10/08/19 13:19 Dose: 500 mg - Exam General: Alert, Oriented Neck: Supple Lungs: Clear to Auscultation, Normal Respiratory Effort Cardiovascular: Regular Rate, Regular Rhythm GI/Abdominal Exam: Normal Bowel Sounds, Soft, Non-Tender Extremities: No Pedal Edema Skin: Warm, Dry Neurological: No New Focal Deficit Psy/Mental Status: Alert, Normal Affect, Normal Mood - Problem List & Annotations (1) Dehydration SNOMED Code(s): 24841641 Code(s): E86.0 - DEHYDRATION Status: Acute Current Visit: Yes (2) Hypokalemia SNOMED Code(s): 70150438 Code(s): E87.6 - HYPOKALEMIA Status: Acute Current Visit: Yes (3) Diarrhea SNOMED Code(s): 86948244 Code(s): R19.7 - DIARRHEA, UNSPECIFIED Status: Acute Current Visit: Yes (4) Pancytopenia due to chemotherapy SNOMED Code(s): 2409815, 498693653 Code(s): D61.810 - ANTINEOPLASTIC CHEMOTHERAPY INDUCED PANCYTOPENIA Status : Acute Current Visit: Yes - Problem List Review Problem List Initiated/Reviewed/Updated: Yes - My Orders Last 24 Hours: My Active Orders 10/09/19 20:00 C DIFFICILE TOXIN IMMUNOASSAY [MREF] Routine 10/10/19 10:30 Phosphorus #1 [Neutra-Phos] 500 mg PO BID 10/10/19 14:00 Loperamide [Imodium] 2 mg PO TID Ondansetron [Zofran ODT] 4 mg PO TID - Plan Plan:: Ms. Casas is a 79 year old female with past medical history significant for relapsed poorly differentiated neuroendocrine tumor currently on FOLFOX therapy , most recent cycle finished on Saturday, history of CVA, hypertension, hypercholesterolemia, tobacco abuse who presented to the hospital as a direct admit from clinic due to progressive weakness, and adult failure to thrive. Patient said that she is on her third week of FOLFOX, and she aggressively got worried weaker. Over the past week or so, she developed significant weakness, associated with nausea and vomiting. Patient thinks that she is keeping up with her output, a and she has chronic diarrhea. She did not notice any change in the color or smell of her urine. Her appetite has been poor. She was seen today by Dr. Giraldo, and lab work was remarkable for potassium 2.8, creatinine 1.5, hemoglobin 9.7, white blood cell count 2.66, chloride 95, calcium 6.9, albumin 2.2. Upon evaluation, patient said that she has no energy. She denied any recent illness. She has no sick contacts. Dehydration with MARCELO Patient had poor oral intake with associated chronic diarrhea improved still has diarrhea, nausea, no oral intake cont with IV fluids check c diff add scheduled imodium and zofran Deconditioning/adult failure to thrive cont PT/ot Poorly differentiated neuroendocrine tumor Patient used to follow with Dr. Leahy, but currently sees Dr. Rico Treatment per Dr. Rico once patient is discharged add megace for appetite Hypokalemia, hypocalcemia, hypophosphatemia We will continue to replace hypophosphatemia, hypomagnesemia recheck in am Anemia, pancytopenia due to chemotherapy hgb drop is likely due to hydration - now stable We will monitor Hypertension cont labetalol will hold lasix Tobacco abuse nicotine patch Hyperlipidemia Statin DVT prophylaxis heparin
[2019-10-10] MEDS ORDERED: Ondansetron 4 MG Tab.DIS PO SCH (14:00)
[2019-10-10] MEDS: Loperamide 2 MG Cap PO SCH ×2 (14:42→21:33)
[2019-10-10] MEDS: Ondansetron 4 MG Tab.DIS PO SCH (16:48)
[2019-10-10] MEDS: Rosuvastatin 10 MG Tab PO SCH (21:28)
[2019-10-10] MEDS: Zolpidem 5 MG Tab PO SCH (21:29)
[2019-10-10] MEDS: Pantoprazole 40 MG Tab.CR PO SCH (21:30)
[2019-10-10] MEDS: Aspirin 81 MG Tab.EC PO SCH (21:32)
[2019-10-11] MEDS: Heparin Sodium 5,000 Units/ML Vial SUBCUT SCH ×2 (05:46→13:34)
[2019-10-11 06:52] LABS: ANION GAP 15.3
[2019-10-11] MEDS: Calcium Carbonate/Vitamin D3 1250 MG-200 Unit Tab PO SCH (07:43)
[2019-10-11] MEDS: Ondansetron 4 MG Tab.DIS PO SCH ×2 (07:45→12:03)
[2019-10-11] MEDS: Labetalol 100 MG Tab PO SCH (07:45)
[2019-10-11] MEDS: Nicotine 14 MG/24 Hr Patch TRDERM SCH (08:50)
[2019-10-11] MEDS: Sodium Chloride 1 GM Tab PO SCH (08:52)
[2019-10-11] MEDS: Loperamide 2 MG Cap PO SCH ×2 (08:52→13:36)
[2019-10-11] MEDS: Megestrol Susp 40 MG/ML 10 ML UD Cup PO SCH (08:55)
[2019-10-11] MEDS: Phosphorus #1 250 MG Tab PO SCH (08:56)
--- NOTE | 2019-10-11 12:18 | PCM.DCSUM1 ---
Discharge Summary - Hospital Course Free Text/Narrative:: Ms. Casas is a 79 year old female with past medical history significant for relapsed poorly differentiated neuroendocrine tumor currently on FOLFOX therapy , most recent cycle finished on Saturday, history of CVA, hypertension, hypercholesterolemia, tobacco abuse who presented to the hospital as a direct admit from clinic due to progressive weakness, and adult failure to thrive. Patient said that she is on her third week of FOLFOX, and she aggressively got worried weaker. Over the past week or so, she developed significant weakness, associated with nausea and vomiting. Patient thinks that she is keeping up with her output, a and she has chronic diarrhea. She did not notice any change in the color or smell of her urine. Her appetite has been poor. She was seen today by Dr. Giraldo, and lab work was remarkable for potassium 2.8, creatinine 1.5, hemoglobin 9.7, white blood cell count 2.66, chloride 95, calcium 6.9, albumin 2.2. Upon evaluation, patient said that she has no energy. She denied any recent illness. She has no sick contacts. Dehydration with MARCELO Patient had poor oral intake with associated chronic diarrhea improved diarrhea with scheduled imodium still has low oral intake c diff is pending - unlikely use prn imodium and zofran Poorly differentiated neuroendocrine tumor Patient used to follow with Dr. Leahy, but currently sees Dr. Rico Treatment per Dr. Rico once patient is discharged added megace for appetite Hypokalemia, hypocalcemia, hypophosphatemia We will continue to replace hypophosphatemia, hypomagnesemia Anemia, pancytopenia due to chemotherapy hgb drop is likely due to hydration - now stable out pt monitoring scheduled by oncology Hypertension cont labetalol stopped norvasc, lasix Tobacco abuse nicotine patch Hyperlipidemia stop Statin with the low oral intake Diagnosis: Stroke: No - Discharge Data Discharge Date: 10/11/19 Discharge Disposition: Home, Self-Care 01 Condition: Fair - Referral to Home Health Primary Care Physician: Javier Giraldo MD - Discharge Diagnosis/Problem(s) (1) Dehydration SNOMED Code(s): 46726810 ICD Code: E86.0 - DEHYDRATION Status: Acute Current Visit: Yes (2) Hypokalemia SNOMED Code(s): 46387199 ICD Code: E87.6 - HYPOKALEMIA Status: Acute Current Visit: Yes (3) Diarrhea SNOMED Code(s): 70423122 ICD Code: R19.7 - DIARRHEA, UNSPECIFIED Status: Acute Current Visit: Yes (4) Pancytopenia due to chemotherapy SNOMED Code(s): 4632002, 467592808 ICD Code: D61.810 - ANTINEOPLASTIC CHEMOTHERAPY INDUCED PANCYTOPENIA Status : Acute Current Visit: Yes - Patient Summary/Data Consults: Consultations 10/06/19 15:23 PT Evaluation and Treatment [CONS] Routine 10/09/19 10:29 PT Evaluation and Treatment [CONS] Routine 10/09/19 10:30 OT Evaluation and Treatment [CONS] Routine - Patient Instructions Diet: Usual Diet as Tolerated Activity: As Tolerated - Discharge Plan *PRESCRIPTION DRUG MONITORING PROGRAM REVIEWED*: Not Applicable *COPY OF PRESCRIPTION DRUG MONITORING REPORT IN PATIENT BONNIE: Not Applicable Prescriptions/Med Rec: Loperamide [Imodium] 2 mg PO TID PRN #15 cap PRN Reason: Diarrhea Magnesium Oxide 500 mg PO DAILY #30 tablet Megestrol [Megace 40 MG/ML Susp] 400 mg PO DAILY #30 cup Phosphorus #1 [Neutra-Phos] 250 mg PO DAILY #30 tablet Home Medications: Home Meds Labetalol [Normodyne] 100 mg PO BIDMEALS 01/21/18 [History] Ondansetron [Zofran] 8 mg PO Q8H PRN 05/30/18 [History] Prochlorperazine [Compazine] 10 mg PO Q6H PRN 05/30/18 [History] Aspirin [Ecotrin EC] 81 mg PO BEDTIME 10/06/19 [History] Sodium Chloride 1 gm PO BID 10/06/19 [History] Zolpidem Tartrate 10 mg PO BEDTIME 10/06/19 [History] Loperamide [Imodium] 2 mg PO TID PRN #15 cap 10/11/19 [Rx] Magnesium Oxide 500 mg PO DAILY #30 tablet 10/11/19 [Rx] Megestrol [Megace 40 MG/ML Susp] 400 mg PO DAILY #30 cup 10/11/19 [Rx] Phosphorus #1 [Neutra-Phos] 250 mg PO DAILY #30 tablet 10/11/19 [Rx] Referrals: Tiffany Giraldo MD [Primary Care Provider] - - Discharge Summary/Plan Comment DC Time >30 min.: No - General Info Date of Service: 10/11/19 - Review of Systems General: Reports: Weakness Pulmonary: Denies: Shortness of Breath Cardiovascular: Denies: Chest Pain Gastrointestinal: Reports: Nausea. Denies: Abdominal Pain, Diarrhea Genitourinary: Denies: Dysuria Neurological: Denies: Confusion - Patient Data Vitals - Most Recent: Last Vital Signs Temp 36.4 C 10/11/19 08:37 Pulse 93 10/11/19 08:37 Resp 20 10/11/19 08:37 BP 98/58 L 10/11/19 08:37 Pulse Ox 98 10/11/19 08:37 Weight - Most Recent: 57.062 kg I&O - Last 24 hours: Intake & Output 10/10/19 10/11/19 10/11/19 22:59 06:59 14:59 Intake Total 600 430 300 Output Total 200 Balance 400 430 300 Lab Results - Last 24 hrs: Laboratory Results - last 24 hr 10/11/19 Range/Units 05:12 Sodium 132 L (135-145) mmol/L Potassium 4.3 (3.6-5.0) mmol/L Chloride 100 L (101-111) mmol/L Carbon Dioxide 21.0 (21.0-31.0) mmol/L Anion Gap 15.3 BUN 21 H (7-18) mg/dL Creatinine 1.4 H (0.6-1.3) mg/dL Est Cr Clr Drug Dosing 23.40 mL/min Estimated GFR (MDRD) 36 Glucose 102 (74-105) mg/dL Calcium 7.2 L (8.4-10.2) mg/dl Phosphorus 2.7 (2.5-4.6) mg/dL Magnesium 1.9 (1.8-2.5) mg/dL Med Orders - Current: Current Medications Acetaminophen (Tylenol) 650 mg PO Q4H PRN PRN Reason: Pain (Mild 1-3)/fever Aspirin (Halfprin) 81 mg PO BEDTIME [facility] Last Admin: 10/10/19 21:32 Dose: 81 mg Calcium Carbonate (Calcium Carbonate/Vitamin D 1250 Mg-200 Unit) 1 tab PO BIDMEALS [facility] Last Admin: 10/11/19 07:43 Dose: 1 tab Heparin Sodium (Porcine) (Heparin Sodium) 5,000 units SUBCUT Q8HR [facility] Last Admin: 10/11/19 05:46 Dose: 5,000 units Labetalol HCl (Normodyne) 100 mg PO BIDMEALS [facility] Last Admin: 10/11/19 07:45 Dose: 100 mg Loperamide HCl (Imodium) 2 mg PO TID [facility] Last Admin: 10/11/19 08:52 Dose: 2 mg Magnesium Oxide (Magnesium Oxide) 500 mg PO TID [facility] Last Admin: 10/11/19 08:52 Dose: 500 mg Megestrol Acetate (Megace 40 Mg/Ml Susp) 400 mg PO DAILY [facility] Last Admin: 10/11/19 08:55 Dose: 400 mg Nicotine (Habitrol) 14 mg TRDERM DAILY [facility] Last Admin: 10/11/19 08:50 Dose: 14 mg Ondansetron HCl (Zofran Odt) 4 mg PO TID@0800,1200,1700 [facility] Last Admin: 10/11/19 12:03 Dose: 4 mg Pantoprazole Sodium (Protonix) 40 mg PO BEDTIME [facility] Last Admin: 10/10/19 21:30 Dose: 40 mg Rosuvastatin Calcium (Crestor) 10 mg PO BEDTIME [facility] Last Admin: 10/10/19 21:28 Dose: 10 mg Sodium Chloride (Sodium Chloride) 1 gm PO BID [facility] Last Admin: 10/11/19 08:52 Dose: 1 gm Sodium Phosphate (Neutra-Phos) 500 mg PO BID [facility] Last Admin: 10/11/19 08:56 Dose: 500 mg Zolpidem Tartrate (Ambien) 10 mg PO BEDTIME [facility] Last Admin: 10/10/19 21:29 Dose: 10 mg Discontinued Medications Sodium Chloride (Normal Saline) 1,000 mls @ 125 mls/hr IV ASDIRECTED [facility] Last Infusion: 10/07/19 13:34 Dose: 0 mls/hr Potassium Chloride 10 meq/ (Premix) 100 mls @ 100 mls/hr IV Q2H [facility] Stop: 10/09/19 17:59 Last Admin: 10/09/19 14:28 Dose: Not Given Potassium Chloride 10 meq/ (Premix) 100 mls @ 100 mls/hr IV Q2H [facility] Stop: 10/09/19 18:59 Last Infusion: 10/09/19 19:20 Dose: Infused Loperamide HCl (Imodium) 2 mg PO Q4H PRN PRN Reason: Diarrhea Magnesium Oxide (Magnesium Oxide) 500 mg PO BIDM [facility] Last Admin: 10/08/19 09:10 Dose: 500 mg Ondansetron HCl (Zofran) 4 mg IVPUSH Q4H PRN PRN Reason: Nausea/Vomiting Last Admin: 10/06/19 21:17 Dose: 4 mg Ondansetron HCl (Zofran Odt) 4 mg PO Q6H PRN PRN Reason: Nausea Last Admin: 10/10/19 08:09 Dose: 4 mg Ondansetron HCl (Zofran Odt) 4 mg PO TID [facility] Last Admin: 10/10/19 14:50 Dose: Not Given Potassium Chloride (Klor-Con 10) 60 meq PO ONETIME ONE Stop: 10/06/19 15:31 Last Admin: 10/06/19 16:22 Dose: 60 meq Potassium Chloride (Klor-Con 10) 40 meq PO BIDMEALS [facility] Last Admin: 10/08/19 13:12 Dose: Not Given Potassium Chloride (Klor-Con 10) 40 meq PO BIDMEALS [facility] Last Admin: 10/10/19 08:00 Dose: 40 meq Sodium Phosphate (Neutra-Phos) 250 mg PO QID [facility] Stop: 10/08/19 09:01 Last Admin: 10/08/19 09:10 Dose: 250 mg Sodium Phosphate (Neutra-Phos) 500 mg PO ONETIME ONE Stop: 10/08/19 13:01 Last Admin: 10/08/19 13:19 Dose: 500 mg - Exam General: Reports: Alert, Oriented Lungs: Reports: Clear to Auscultation, Normal Respiratory Effort Cardiovascular: Reports: Regular Rate, Regular Rhythm GI/Abdominal Exam: Normal Bowel Sounds, Soft, Non-Tender Extremities: No Pedal Edema
== END 2019-10-11 15:20 | disposition home or self-care (01) | DRG 682 ==
LOC: EDSTATUS 14:14 → UNDOADMIN 15:05 → DL.MS 15:05
PROVIDERS: ADMIT Internal Medicine; ATTEND Internal Medicine
DX: N17.9 Acute kidney failure, unspecified (principal); D61.810 Antineoplastic chemotherapy induced pancytopenia; E86.0 Dehydration; E87.6 Hypokalemia; I10 Essential (primary) hypertension; E78.00 Pure hypercholesterolemia, unspecified; F17.210 Nicotine dependence, cigarettes, uncomplicated; D3A.8 Other benign neuroendocrine tumors; E78.5 Hyperlipidemia, unspecified; E83.51 Hypocalcemia; E83.39 Other disorders of phosphorus metabolism; E83.42 Hypomagnesemia; R62.7 Adult failure to thrive; Z88.0 Allergy status to penicillin; Z79.899 Other long term (current) drug therapy; Z85.118 Personal history of other malignant neoplasm of bronchus and lung; Z90.49 Acquired absence of other specified parts of digestive tract; Z79.82 Long term (current) use of aspirin; Z86.73 Personal history of transient ischemic attack (TIA), and cerebral infarction without residual deficits; Z98.49 Cataract extraction status, unspecified eye; Z68.25 Body mass index [BMI] 25.0-25.9, adult
CPT/HCPCS: 36415; 80048; 80053; 83735; 84100; 85025; 85027; 87230; 87324; 87493; 94667; 97162-GP; 97165-GO; 97530-GP; A9270-GY; J1642; J1644; J2405; J3480; J7030

== ENCOUNTER 2019-10-12 20:15 | Emergency (ER) | payer MEDICARE, MEDICAID ==
--- NOTE | 2019-10-13 03:56 | EDM.PDOC ---
ED HPI GENERAL MEDICAL PROBLEM - General Chief Complaint: CPR in Progress Stated Complaint: AMBULANCE Time Seen by Provider: 10/12/19 20:15 Source of Information: Reports: EMS, Family, RN History Limitations: Reports: Other - History of Present Illness INITIAL COMMENTS - FREE TEXT/NARRATIVE: Patient seen on arrival 1999 . ED arrival via [facility] with report of CA with mets hx, Not eating past 10days, Recent hospitalization for electrolyte disturbance , failure to thrive. Today weak Up to bathroom with assistance and going back to bed, collapsed Family stated did not fall or hit hit, just slumped down, Not breathing and unresponsive. EMS called CPR initiated, IO access and 2 rounds of EPI, PEA on monitor on scene No shocks. 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 CPR continued enroute Liquid pace emesis. Arrival pale cool Pupils fixed dilated asystole, Epi x 1 followed by fluid, Nasal airway, suction scant amount oral cavity. Rhythm check asystole confirmed absence of pulse or apical beat. Family here. 2007 CPR stopped. Family notified, in with patient. - Related Data Allergies Allergy/AdvReac Type Severity Reaction Status Date / Time Penicillins Allergy Cannot Verified 10/06/19 14:40 Remember Home Meds: Home Meds Labetalol [Normodyne] 100 mg PO BIDMEALS 01/21/18 [History] Ondansetron [Zofran] 8 mg PO Q8H PRN 05/30/18 [History] Prochlorperazine [Compazine] 10 mg PO Q6H PRN 05/30/18 [History] Aspirin [Ecotrin EC] 81 mg PO BEDTIME 10/06/19 [History] Sodium Chloride 1 gm PO BID 10/06/19 [History] Zolpidem Tartrate 10 mg PO BEDTIME 10/06/19 [History] Loperamide [Imodium] 2 mg PO TID PRN #15 cap 10/11/19 [Rx] Magnesium Oxide 500 mg PO DAILY #30 tablet 10/11/19 [Rx] Megestrol [Megace 40 MG/ML Susp] 400 mg PO DAILY #30 cup 10/11/19 [Rx] Phosphorus #1 [Neutra-Phos] 250 mg PO DAILY #30 tablet 10/11/19 [Rx] Past Medical History HEENT History: Reports: Cataract Cardiovascular History: Reports: High Cholesterol, Hypertension Respiratory History: Reports: Other (See Below) Other Respiratory History: Lung Cancer Gastrointestinal History: Reports: None Genitourinary History: Reports: None [employer]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 - Infectious Disease History Infectious Disease History: Reports: Influenza, Shingles - Past Surgical History Head Surgeries/Procedures: Reports: None HEENT Surgical History: Reports: Cataract Surgery Cardiovascular Surgical History: Reports: Carotid Stents Respiratory Surgical History: Reports: Lung Biopsies GI Surgical History: Reports: Appendectomy Female Surgical History: Reports: None Neurological Surgical History: Reports: None Musculoskeletal Surgical History: Reports: None Oncologic Surgical History: Reports: None Dermatological Surgical History: Reports: None Social & Family History - Family History Family Medical History: Noncontributory - Caffeine Use Caffeine Use: Reports: Coffee ED ROS GENERAL - Review of Systems Review Of Systems: Comprehensive ROS is negative, except as noted in HPI. Constitutional: Reports: Malaise, Weakness, Decreased Appetite ED EXAM, CPR - Physical Exam Exam: See Below Limited By: Other (CPR in progress ) General Appearance: Obese, Other (pale) Eye Exam: Bilateral Eye: Other (fixed dilated) Ears: Normal External Exam Nose: Normal Inspection Throat/Mouth: Other (mucus membranes dry, pace liquid emesis) Head: Atraumatic, Normocephalic Respiratory Chest: Other (Respiratory assist with bag. ) Cardiovascular: Pulse with Compression, CPR In Progress Skin Exam: Cool, Pallor Departure - Departure Time of Disposition: 21:38 Disposition: 20 Preliminary Cause of *Q: Cardiac Arrest Clinical Impression: Cardiac arrest - Discharge Information *PRESCRIPTION DRUG MONITORING PROGRAM REVIEWED*: Not Applicable *COPY OF PRESCRIPTION DRUG MONITORING REPORT IN PATIENT BONNIE: Not Applicable Referrals: PCP,Unobtain [Primary Care Provider] - Forms: ED Department Discharge Sepsis Event Note - Focused Exam Date Exam was Performed: 10/14/19 Time Exam was Performed: 04:12
== END 2019-10-12 21:00 | disposition expired ==
LOC: DL.ED 20:15
DX: I46.9 Cardiac arrest, cause unspecified (principal); I10 Essential (primary) hypertension; Z79.899 Other long term (current) drug therapy; Z88.0 Allergy status to penicillin; Z79.82 Long term (current) use of aspirin; Z86.73 Personal history of transient ischemic attack (TIA), and cerebral infarction without residual deficits
CPT/HCPCS: 92950; 99285; 99285-25